=== PATIENT | female | born 1950 | race Caucasian/White ===

== ENCOUNTER 2019-11-25 08:00 | Outpatient (CLI) | payer MEDICARE ==
[2019-11-29] MEDS ORDERED: GABA300C PO (16:19)
[2019-11-29] MEDS ORDERED: HYDROCHLOROTH12.5 MG PO (16:19)
[2019-11-29] MEDS ORDERED: AMLO10TA8 PO (16:19)
== END 2019-11-25 23:59 | disposition home or self-care (01) ==
LOC: STAR 08:00
PROVIDERS: ATTEND Neurological Surgery
DX: Z01.818 Encounter for other preprocedural examination (principal); Z11.59 Encounter for screening for other viral diseases; M54.16 Radiculopathy, lumbar region; M48.061 Spinal stenosis, lumbar region without neurogenic claudication; R79.1 Abnormal coagulation profile; R82.90 Unspecified abnormal findings in urine; R94.31 Abnormal electrocardiogram [ECG] [EKG]
CPT/HCPCS: 36415; 71046; 80053; 81001; 85025; 85610; 85730; 87077; 87086; 87186; 93005; U0001-CS

== ENCOUNTER → 2019-11-29 | Outpatient (CLI) | payer MEDICARE ==
[~2019-11-29] MED LIST: AMLO10TA8 PO; GABA300C PO; HYDROCHLOROTH12.5 MG PO
== END | disposition home or self-care (01) ==
LOC: STAR 08:00
PROVIDERS: ATTEND Neurological Surgery
DX: Z01.818 Encounter for other preprocedural examination (principal); Z01.812 Encounter for preprocedural laboratory examination; Z01.811 Encounter for preprocedural respiratory examination; Z01.810 Encounter for preprocedural cardiovascular examination; M47.814 Spondylosis without myelopathy or radiculopathy, thoracic region; R94.31 Abnormal electrocardiogram [ECG] [EKG]; R82.90 Unspecified abnormal findings in urine; R79.1 Abnormal coagulation profile; M48.061 Spinal stenosis, lumbar region without neurogenic claudication; M54.16 Radiculopathy, lumbar region
CPT/HCPCS: 36415; 71046; 80053; 81001; 85025; 85610; 85730; 87077; 87086; 87186; 93005